=== PATIENT | female | born 1990 | race American Indian/Alaskan Native ===

== ENCOUNTER 2020-12-24 09:55 | Day surgery (SDC) | payer BC ==
[~2020-12-24 09:55] MED LIST: SODIUM CHLORIDE 0.9% 1000 ML 1,000 ML IV SCH
--- NOTE | 2020-12-24 10:32 | Anesthesia Consultation ---
Anesthesia Consult and Med Hx Date of service: 12/24/20 - Airway Anesthetic Teeth Evaluation: Good ROM Head & Neck: Adequate Mental/Hyoid Distance: Adequate Mallampati Class: Class III Intubation Access Assessment: Possibly Difficult - Pre-Operative Health Status ASA Pre-Surgery Classification: ASA2 Proposed Anesthetic Plan: MAC - Pulmonary Hx Smoking: No Hx Asthma: Yes (seasonal; last inhaler use 1 month ago) Hx Respiratory Symptoms: No - Cardiovascular System Hx Hypertension: No - Central Nervous System CVA: No - Gastrointestinal Hx Gastroesophageal Reflux Disease: Yes (gastritis) - Endocrine Hx Renal Disease: No Hx Liver Disease: No Hx Insulin Dependent Diabetes: No Hx Non-Insulin Dependent Diabetes: No Hx Thyroid Disease: Yes (thyroid nodules; work up ongoing) - Additional Comments Anesthesia Medical History Comments: No hx anesthetic complications.
--- NOTE | 2020-12-24 10:32 | Anesthesia Day of Surgery ---
Anesthesia Day of Surgery - Day of Surgery Patient Examined: Yes Patient H&P Reviewed: Yes Patient is NPO: Yes
[2020-12-24] MEDS ORDERED: propofoL 200 MG/20 ML VIAL IV ONE ×3 (11:42→14:12)
[2020-12-24] MEDS ORDERED: MIDAZOLAM 2 MG/2 ML INJ ONE (12:32)
[2020-12-24] MEDS ORDERED: fentaNYL 100 MCG/2 ML INJ ONE (12:37)
--- NOTE | 2020-12-24 13:07 | Procedure Note ---
Date of procedure: 12/24/20 Pre-op diagnosis: Abdominal Pain/ Changes in Bowel Habit/ Colitis Post-op diagnosis: other (T/O Microscopic Colitis/ R/O Ileitis/Minor,Internal Hemorrhoids/ No Colon Polyps or diverticular disease was noted.) Procedure: Colonoscopy with Random biopsies [place] [facility] [place]: ANIRUDH HAYS Estimated blood loss: minimal Pathology: list Specimen disposition: to lab Condition: stable Disposition: same day (Bentyl prn use; use OTC Probiotic and OTC anti-diarrhea medicine as needed. Follow up in 1 to 2 weeks ([phone]).)
--- NOTE | 2020-12-24 13:13 | Post Anesthesia Evaluation ---
- Post Anesthesia Evaluation Patient Participated: Yes Airway Patent: Yes Stable Respiratory Function: Yes Nausea/Vomiting: No Temp > 96.8F: Yes Pain Manageable: Yes Adequeate Hydration: Yes Anesthesia Complications: No
[2020-12-24 13:53] VITALS: BP 122/62
--- NOTE | 2020-12-24 14:17 | Operative Report ---
DATE OF SURGERY: 12/24/2020 PROCEDURE PERFORMED: Colonoscopy with biopsy. INDICATIONS: This is a 30-year-old -[place] female who is a and has been having abdominal pain and discomfort with changes in bowel habits. She has had an EGD done by another physician and was told that she had gastritis. Colonoscopy was done to make sure there was not any significant lower GI pathology present. She was also told that she may have a history of lupus. Blood tests, however, were done by [place], which did not show any evidence of lupus. Colonoscopy was done to assess for any significant lower GI pathology. DESCRIPTION OF PROCEDURE: Procedure was done after getting informed consent with MAC anesthesia. Initial rectal examination was unremarkable. The instrument was passed through the rectum onto the cecum, which was identified with ileocecal valve and the appendiceal orifice. Cecum was also evaluated on the retroverted view. The terminal ileum was intubated, showed normal mucosa. Biopsy was done to rule out for possible ileitis. Cecum, ascending colon, transverse colon, descending colon, and sigmoid showed normal mucosa. Visualization was fair. Mucosa was washed with copious amounts of water. Random biopsies were done throughout the colon to rule out for possible microscopic colitis and the rectum showed some minor internal hemorrhoid on the retroverted view. There was minimal bleeding associated with the procedure. No complications associated with the procedure. ASSESSMENT: Abdominal pain, changes in bowel habits, rule out microscopic colitis, rule out ileitis, minor internal hemorrhoids. No diverticula or colon polyps were noted. There is minimal bleeding associated with the procedure. No complications associated with the procedure. PLAN: To have the patient avoid aspirin and aspirin-related products for the next 4 days, otherwise resume home medication. The patient will be encouraged to take probiotics as well as a p.r.n. dose of Bentyl for any abdominal pain and [id number] diarrhea medication for any diarrhea symptoms and asked to follow up in the office in 1-2 weeks' time. Further treatment adjustment will be according to the biopsy findings. Procedure was done in the GI lab with assistance of the GI lab team, which included the GI nurse, photographic equipment technician and with assistance of anesthesia. TID: [id number] RECEIPT: [id number] KAMRON/RADHA
== END 2020-12-24 13:37 | disposition home or self-care (01) ==
LOC: GIO 09:55
DX: R10.9 Unspecified abdominal pain (principal); R19.4 Change in bowel habit; K64.8 Other hemorrhoids; K63.89 Other specified diseases of intestine; J45.909 Unspecified asthma, uncomplicated; K21.9 Gastro-esophageal reflux disease without esophagitis; Z86.010 Personal history of colon polyps; Z79.899 Other long term (current) drug therapy
CPT/HCPCS: 45380; 81025; 88305; J2250; J2704; J3010; J7030